=== PATIENT | male | born 1970 | race African-American/Black ===

== ENCOUNTER 2024-05-10 11:47 | Inpatient (IN) | payer MEDICAID ==
[~2024-05-10] VITALS: Ht 172.7 cm; Wt 135.2 kg
[2024-05-10] MEDS: DIPHENHYDRAMINE 50MG/ML VIAL IV ONE (12:19)
[2024-05-10] MEDS: METHYLPREDNISOLONE SOD SUCC 125MG/2ML (ACT-O-VIAL) IV ONE (12:20)
[2024-05-10] MEDS: KETOROLAC 30MG/ML VIAL IM STA (12:20)
[2024-05-10 12:48] LABS: CHLORIDE 107 mEq/L (98-107); POTASSIUM 3.5 mEq/L (3.5-5.1); SODIUM 139 mEq/L (136-145)
[2024-05-10 12:49] LABS: BASOPHILS % 0.7 % (0.0-2.0); CALCIUM 8.8 mg/dL (8.7-10.4); CARBON DIOXIDE 24 mEq/L (21-32); EOSINOPHILS % 1.4 % (0.0-5.0); HEMATOCRIT. 45.6 % (42.0-52.0); LYMPHOCYTES % 18.5 % (20.0-50.0); MEAN CORPUSCULAR HEMOGLOBIN 30.3 pg (28.0-32.0); MEAN CORPUSCULAR HGB CONC 32.9 g/dL (31.0-37.0); MEAN CORPUSCULAR VOLUME 92.1 fL (80.0-94.0); MEAN PLATELET VOLUME 8.9 fl (7.4-10.4); NEUTROPHILS % 69.4 % (40.0-76.0); PLATELET 146 x1000/uL (130-400); RED BLOOD CELL COUNT 4.95 mill/uL (4.7-6.1); RED CELL DISTRIBUTION WIDTH 14.2 % (11.6-14.6); WHITE BLOOD COUNT 12.1 x1000/uL (4.5-11.0)
[2024-05-10 12:54] LABS: CREATININE 1.1 mg/dL (0.6-1.3); GLUCOSE 118 mg/dL (70-105); UREA NITROGEN BLOOD 10 mg/dL (9-23)
[2024-05-10 12:57] LABS: TROPONIN I HIGH SENSITIVITY 761 ng/L (3.0-53)
[2024-05-10] MEDS ORDERED: HEPARIN 25,000 UNITS PREMIX 250 ML IV SCH (14:00)
[2024-05-10] MEDS: ASPIRIN 81MG TABLET PO NR (14:12)
[2024-05-10 15:07] LABS: INR 1.1; PARTIAL THROMBOPLASTIN TIME 27.6 sec (23.4-31.0); PROTHROMBIN TIME 11.8 sec (9.6-11.0)
[2024-05-10] MEDS: HEPARIN 5000 UNITS/ML VIAL IV NR (15:36)
[2024-05-10] MEDS: HEPARIN 25,000 UNITS PREMIX 250 ML IV SCH (15:44)
[2024-05-10] MEDS ORDERED: MAGNESIUM/ALUMINUM HYDROXIDE/SIMETHICONE 30ML UDC PO PRN (20:30)
[2024-05-10] MEDS ORDERED: GUAIFENESIN 200MG/10ML SUGAR FREE UDC PO PRN (20:30)
[2024-05-10] MEDS ORDERED: DOCUSATE SODIUM 100MG CAPSULE PO PRN (20:30)
[2024-05-10] MEDS ORDERED: IPRATROPIUM/ALBUTEROL 0.5-3(2.5)MG/3ML NEB HHN PRN (20:30)
[2024-05-10] MEDS ORDERED: ONDANSETRON HCL 4MG/2ML INJ IV PRN (20:30)
[2024-05-10] MEDS ORDERED: ACETAMINOPHEN 325MG TABLET PO PRN ×2 (20:30)
[2024-05-10 21:57] LABS: T4 FREE 1.11 ng/dL (0.89-1.76); THYROID STIMULATING HORMONE 1.92 uIU/mL (0.55-4.78)
[2024-05-10] MEDS: PANTOPRAZOLE SODIUM 40 MG/VIAL IV SCH (22:42)
[2024-05-10] MEDS: AMLODIPINE 5MG TABLET PO SCH (22:43)
[2024-05-10 23:00] VITALS: BP 126/89; PULSE 100; RESP 23; TEMP 98.8
[2024-05-10 23:01] LABS: ALANINE AMINOTRANSFERASE 40 IU/L (10-49); ALBUMIN 4.4 g/dL (3.2-4.8); ASPARTATE AMINOTRANSFERASE 40 IU/L (<34); BILIRUBIN DIRECT 0.3 mg/dL (<=3.0); BILIRUBIN TOTAL 0.9 mg/dL (0.1-1.0); PROTEIN TOTAL 7.2 g/dL (6.0-8.3)
[2024-05-10 23:15] VITALS: BP 143/106; PULSE 96; RESP 26
[2024-05-10 23:19] LABS: BG BASE EXCESS -0.8 mmol/L (-2.0-2.0); BG CARBOXYHEMOGLOBIN 0.5 % (0.5-1.5); BG DEOXYHEMOGLOBIN 8.4 % (0.0-5.0); BG FRACTION INSPIRED OXYGEN 36; BG HCO3 ACT 22.9 mmol/L (22.0-26.0); BG METHEMOGLOBIN 0.3 % (0.0-1.5); BG OXYGEN SATURATION 91.5 % (92.0-98.5); BG OXYHEMOGLOBIN 90.8 % (94.0-97.0); BG PCO2 35.3 mmHg (35.0-45.0); BG PO2 62.8 mmHg (75.0-100.0); BG SAMPLE SITE RIGHT RADIAL; BG VENT MODE HIGH FLOW
[2024-05-10 23:30] VITALS: BP 135/100; PULSE 93; RESP 20
[2024-05-10 23:45] VITALS: BP 146/109; PULSE 93; RESP 24
[2024-05-11] VITALS (57 sets, daily range): BP systolic 110–160; BP diastolic 49–114; PULSE 73–106; RESP 12–29; TEMP 97.3–98.8; O2SAT 93–95
[2024-05-11] MEDS: IPRATROPIUM/ALBUTEROL 0.5-3(2.5)MG/3ML NEB HHN SCH (00:31)
[2024-05-11] MEDS: CLONIDINE 0.1MG TABLET PO PRN (01:16)
[2024-05-11 03:03] LABS: BASOPHILS % 0.3 % (0.0-2.0); EOSINOPHILS % 0.1 % (0.0-5.0); HEMATOCRIT. 45.2 % (42.0-52.0); HEMOGLOBIN. 14.8 g/dL (14.0-18.0); LYMPHOCYTES % 9.8 % (20.0-50.0); MEAN CORPUSCULAR HEMOGLOBIN 30.1 pg (28.0-32.0); MEAN CORPUSCULAR HGB CONC 32.6 g/dL (31.0-37.0); MEAN CORPUSCULAR VOLUME 92.4 fL (80.0-94.0); MEAN PLATELET VOLUME 9.4 fl (7.4-10.4); MONOCYTES % 7.6 % (2.0-8.0); NEUTROPHILS % 82.2 % (40.0-76.0); PLATELET 161 x1000/uL (130-400); WHITE BLOOD COUNT 13.1 x1000/uL (4.5-11.0)
[2024-05-11 03:14] LABS: CHLORIDE 106 mEq/L (98-107); POTASSIUM 3.9 mEq/L (3.5-5.1); SODIUM 137 mEq/L (136-145)
[2024-05-11 03:15] LABS: CARBON DIOXIDE 23 mEq/L (21-32)
[2024-05-11 03:16] LABS: CALCIUM 8.9 mg/dL (8.7-10.4)
[2024-05-11 03:21] LABS: CREATINE KINASE MB FRACTION 4.6 ng/mL (0.5-3.6); GLUCOSE 156 mg/dL (70-105); UREA NITROGEN BLOOD 13 mg/dL (9-23)
[2024-05-11 03:23] LABS: CREATINE KINASE 223 IU/L (46-171)
[2024-05-11 03:49] LABS: TROPONIN I HIGH SENSITIVITY 425 ng/L (3.0-53)
[2024-05-11] MEDS: HEPARIN 5000 UNITS/ML VIAL IV PRN ×2 (03:51→13:29)
[2024-05-11] MEDS: ASPIRIN 81MG EC TABLET PO SCH (08:46)
[2024-05-11] MEDS: AMLODIPINE 10MG TABLET PO SCH (08:47)
[2024-05-11] MEDS: ENOXAPARIN 120MG/0.8ML SYR SUBCUT SCH (17:31)
[2024-05-11 21:12] LABS: CLARITY URINE CLEAR (CLEAR); COLOR URINE DARK YELLOW (YELLOW); GLUCOSE URINE NEGATIVE (NEGATIVE); KETONES URINE NEGATIVE (NEGATIVE); LEUKOCYTE ESTERASE URINE TRACE (NEGATIVE); NITRITE URINE NEGATIVE (NEGATIVE); OCCULT BLOOD URINE TRACE (NEGATIVE); PH URINE 5.5 (4.5-8.0); PROTEIN URINE 1+ (NEGATIVE); SPECIFIC GRAVITY URINE 1.034 (1.005-1.030)
[2024-05-11 21:28] LABS: *AMPHETAMINES SCREEN URINE NEGATIVE (NEGATIVE); *BARBITURATES SCREEN URINE NEGATIVE (NEGATIVE); *BENZODIAZEPINES SCREEN URINE NEGATIVE (NEGATIVE); *COCAINE SCREEN URINE NEGATIVE (NEGATIVE); METHADONE URINE SCREEN NEGATIVE (NEGATIVE); OPIATES URINE SCREEN NEGATIVE (NEGATIVE)
[2024-05-11 21:29] LABS: CANNABINOID URINE SCREEN NEGATIVE (NEGATIVE); ECSTASY MDMA SCREEN URINE NEGATIVE (NEGATIVE); PHENCYCLIDINE URINE SCREEN NEGATIVE (NEGATIVE)
[2024-05-11 21:32] LABS: BACTERIA URINE 2+; RBC URINE 0-2 /hpf (0-2); SQUAMOUS EPITHELIAL CELL URINE FEW /lpf (RARE/1+); WBC URINE 0-2 /hpf (0-2)
[2024-05-12] VITALS (10 sets, daily range): BP systolic 101–143; BP diastolic 75–94; PULSE 78–101; RESP 16–23; TEMP 97.6–98.2; O2SAT 93–96
[2024-05-12 10:01] LABS: BASOPHILS % 0.6 % (0.0-2.0); EOSINOPHILS % 1.8 % (0.0-5.0); HEMATOCRIT. 44.4 % (42.0-52.0); HEMOGLOBIN. 14.5 g/dL (14.0-18.0); LYMPHOCYTES % 23.6 % (20.0-50.0); MEAN CORPUSCULAR HEMOGLOBIN 30.4 pg (28.0-32.0); MEAN CORPUSCULAR HGB CONC 32.7 g/dL (31.0-37.0); MEAN CORPUSCULAR VOLUME 92.8 fL (80.0-94.0); MONOCYTES % 6.5 % (2.0-8.0); NEUTROPHILS % 67.5 % (40.0-76.0); PLATELET 164 x1000/uL (130-400); RED BLOOD CELL COUNT 4.78 mill/uL (4.7-6.1); RED CELL DISTRIBUTION WIDTH 14.2 % (11.6-14.6); WHITE BLOOD COUNT 9.4 x1000/uL (4.5-11.0)
[2024-05-12 10:07] LABS: CHLORIDE 107 mEq/L (98-107); POTASSIUM 3.2 mEq/L (3.5-5.1); SODIUM 139 mEq/L (136-145)
[2024-05-12 10:08] LABS: CALCIUM 8.7 mg/dL (8.7-10.4); CARBON DIOXIDE 26 mEq/L (21-32)
[2024-05-12 10:13] LABS: GLUCOSE 157 mg/dL (70-105); UREA NITROGEN BLOOD 12 mg/dL (9-23)
[2024-05-12] MEDS: POTASSIUM CHLORIDE 20MEQ/PACKET PO NR (11:06)
[2024-05-12] MEDS: MAGNESIUM GLUCONATE 500MG TABLET PO NR (12:59)
[2024-05-13] VITALS (11 sets, daily range): BP systolic 125–157; BP diastolic 75–107; PULSE 81–99; RESP 16–27; TEMP 97.8–98.5; O2SAT 92–96
[2024-05-13 06:03] LABS: CARBON DIOXIDE 28 mEq/L (21-32); CHLORIDE 106 mEq/L (98-107); POTASSIUM 3.8 mEq/L (3.5-5.1); SODIUM 140 mEq/L (136-145)
[2024-05-13 06:04] LABS: CALCIUM 8.5 mg/dL (8.7-10.4)
[2024-05-13 06:08] LABS: CREATINE KINASE MB FRACTION 1.8 ng/mL (0.5-3.6)
[2024-05-13 06:09] LABS: CREATINE KINASE 119 IU/L (46-171); GLUCOSE 100 mg/dL (70-105); UREA NITROGEN BLOOD 11 mg/dL (9-23)
[2024-05-13 07:29] LABS: BASOPHILS % 0.3 % (0.0-2.0); EOSINOPHILS % 3.2 % (0.0-5.0); HEMATOCRIT. 41.9 % (42.0-52.0); HEMOGLOBIN. 13.5 g/dL (14.0-18.0); MEAN CORPUSCULAR HEMOGLOBIN 30.2 pg (28.0-32.0); MEAN CORPUSCULAR HGB CONC 32.3 g/dL (31.0-37.0); MEAN CORPUSCULAR VOLUME 93.5 fL (80.0-94.0); MONOCYTES % 10.1 % (2.0-8.0); NEUTROPHILS % 58.4 % (40.0-76.0); PLATELET 169 x1000/uL (130-400); RED BLOOD CELL COUNT 4.48 mill/uL (4.7-6.1); RED CELL DISTRIBUTION WIDTH 14.1 % (11.6-14.6); WHITE BLOOD COUNT 8.5 x1000/uL (4.5-11.0)
[2024-05-13] MEDS: FAMOTIDINE 20MG/2ML VIAL IV SCH (08:10)
[2024-05-13 10:40] LABS: TROPONIN I HIGH SENSITIVITY 249 ng/L (3.0-53)
[2024-05-13 12:13] LABS: BG BASE EXCESS 0.3 mmol/L (-2.0-2.0); BG CARBOXYHEMOGLOBIN 0.8 % (0.5-1.5); BG DEOXYHEMOGLOBIN 10.5 % (0.0-5.0); BG FRACTION INSPIRED OXYGEN 21; BG HCO3 ACT 23.6 mmol/L (22.0-26.0); BG METHEMOGLOBIN 0.3 % (0.0-1.5); BG OXYGEN SATURATION 89.4 % (92.0-98.5); BG OXYHEMOGLOBIN 88.4 % (94.0-97.0); BG PCO2 34.2 mmHg (35.0-45.0); BG PH 7.456 (7.350-7.450); BG PO2 55.6 mmHg (75.0-100.0); BG SAMPLE SITE RIGHT RADIAL; BG TOTAL HEMOGLOBIN 15.3 g/dL (12.0-18.0); BG VENT MODE ROOM AIR
[2024-05-14] VITALS (10 sets, daily range): BP systolic 122–152; BP diastolic 69–99; PULSE 80–103; RESP 16–24; TEMP 97.8–98.5; O2SAT 93–96
[2024-05-14 06:12] LABS: CHLORIDE 105 mEq/L (98-107); POTASSIUM 3.8 mEq/L (3.5-5.1); SODIUM 139 mEq/L (136-145)
[2024-05-14 06:13] LABS: CALCIUM 8.8 mg/dL (8.7-10.4); CARBON DIOXIDE 29 mEq/L (21-32)
[2024-05-14 06:15] LABS: BASOPHILS % 0.5 % (0.0-2.0); EOSINOPHILS % 3.9 % (0.0-5.0); HEMATOCRIT. 42.4 % (42.0-52.0); HEMOGLOBIN. 13.8 g/dL (14.0-18.0); LYMPHOCYTES % 25.5 % (20.0-50.0); MEAN CORPUSCULAR HEMOGLOBIN 30.1 pg (28.0-32.0); MEAN CORPUSCULAR HGB CONC 32.6 g/dL (31.0-37.0); MEAN CORPUSCULAR VOLUME 92.4 fL (80.0-94.0); MEAN PLATELET VOLUME 8.7 fl (7.4-10.4); NEUTROPHILS % 62.1 % (40.0-76.0); PLATELET 181 x1000/uL (130-400); RED BLOOD CELL COUNT 4.59 mill/uL (4.7-6.1); RED CELL DISTRIBUTION WIDTH 13.8 % (11.6-14.6); WHITE BLOOD COUNT 7.7 x1000/uL (4.5-11.0)
[2024-05-14 06:18] LABS: CREATININE 0.9 mg/dL (0.6-1.3); GLUCOSE 101 mg/dL (70-105); UREA NITROGEN BLOOD 7 mg/dL (9-23)
[2024-05-14] MEDS: LOSARTAN 25 MG TABLET PO SCH (14:16)
[2024-05-14 15:01] LABS: BG BASE EXCESS -1.6 mmol/L (-2.0-2.0); BG CARBOXYHEMOGLOBIN 0.9 % (0.5-1.5); BG DEOXYHEMOGLOBIN 4.7 % (0.0-5.0); BG FRACTION INSPIRED OXYGEN 28; BG HCO3 ACT 22.1 mmol/L (22.0-26.0); BG METHEMOGLOBIN 0.3 % (0.0-1.5); BG OXYGEN SATURATION 95.2 % (92.0-98.5); BG OXYHEMOGLOBIN 94.1 % (94.0-97.0); BG PH 7.419 (7.350-7.450); BG SAMPLE SITE RIGHT RADIAL; BG TOTAL HEMOGLOBIN 15.4 g/dL (12.0-18.0); BG VENT MODE NASAL CANNULA
[2024-05-14] MEDS ORDERED: APIX5TAB MT (15:39)
[2024-05-14] MEDS ORDERED: ATOR40TA70 MT (15:39)
[2024-05-14] MEDS ORDERED: APIX5TAB PO (15:39)
[2024-05-14] MEDS ORDERED: LOSA25TA26 MT ×2 (15:43→15:45)
[2024-05-14] MEDS ORDERED: CARV3.1242 MT ×2 (15:43→15:45)
[2024-05-14] MEDS: CARVEDILOL 3.125 MG TABLET PO SCH (22:28)
[2024-05-15] VITALS (10 sets, daily range): BP systolic 124–140; BP diastolic 79–96; PULSE 74–97; RESP 16–23; TEMP 96.9–98.5; O2SAT 93–96
[2024-05-16] VITALS (7 sets, daily range): BP systolic 110–159; BP diastolic 66–91; PULSE 77–87; RESP 17–25; TEMP 87.1–98; O2SAT 96
[2024-05-16] MEDS: FAMOTIDINE 20MG TABLET PO SCH (09:52)
[2024-05-17] VITALS: BP 142/90; PULSE 75; RESP 24; TEMP 97.1
[2024-05-17 04:00] VITALS: BP 182/83; PULSE 80; RESP 21; TEMP 97.3
[2024-05-17 08:00] VITALS: BP 147/98; PULSE 72; RESP 19; TEMP 98
[2024-05-17 11:57] VITALS: BP 146/94; PULSE 74; RESP 20; TEMP 98.9
[2024-05-17 16:00] VITALS: BP 146/99; PULSE 78; RESP 18; TEMP 98.5
[2024-05-17 16:19] VITALS: BP 146/94; PULSE 74; TEMP 98.9; O2SAT 96
== END 2024-05-17 19:11 | disposition home or self-care (01) | DRG 134 ==
LOC: ER 12:25 → EDBEDREQ 17:02 → EDBEDREQTM 17:02 → CVICU 22:06 → 3WST 05-11 20:11
PROVIDERS: ADMIT Internal Medicine; ATTEND Internal Medicine
DX: I26.99 Other pulmonary embolism without acute cor pulmonale (principal); J96.01 Acute respiratory failure with hypoxia; I21.A1 Myocardial infarction type 2; I42.9 Cardiomyopathy, unspecified; E87.3 Alkalosis; I82.432 Acute embolism and thrombosis of left popliteal vein; R73.9 Hyperglycemia, unspecified; R73.03 Prediabetes; D72.829 Elevated white blood cell count, unspecified; E87.6 Hypokalemia; J45.909 Unspecified asthma, uncomplicated; J98.11 Atelectasis; I10 Essential (primary) hypertension; K59.00 Constipation, unspecified; Z79.82 Long term (current) use of aspirin; Z79.899 Other long term (current) drug therapy; Z91.041 Radiographic dye allergy status
CPT/HCPCS: 36415; 36600; 71045; 71275; 80048; 80061; 80076; 80305; 81003; 82375; 82550; 82553; 82803; 82805; 82962; 83036; 83735; 84439; 84443; 84484; 85025; 87804; 93005; 93306; 93971; 94640; 97162; 97166; 99285; J1200; J1644; J1650; J1885; J2470; J2919; J3490